=== PATIENT | female | born 1945 | race Caucasian/White ===

== ENCOUNTER 2019-09-04 16:10 | Inpatient (IN) ==
[2019-09-04 17:30] LABS: Basophils % 0.6 %; Eosinophils # 0.1 K/mcL (0.0-0.6); Eosinophils % 2.2 %; Hematocrit 26.5 % (35.3-44.9); Hemoglobin 8.8 g/dL (11.5-15.4); Immature Granulocytes % 0.4 % (0-4); Lymphocytes # 0.7 K/mcL (0.6-4.6); Lymphocytes % 13.2 %; Mean Corpuscular HGB Conc 33.2 g/dL (31.6-35.5); Mean Corpuscular Hemoglobin 30.6 pg (28.0-33.3); Mean Platelet Volume 9.5 fL (9.4-12.4); Monocytes # 0.6 K/mcL (0.0-1.3); Platelet Count 208 K/mcL (140-400); Red Blood Count 2.88 M/mcL (3.82-4.97); Red Cell Distribution Width 14.4 % (11.5-14.5); Segmented Neutrophils % 72.6 %; White Blood Count 5.5 K/mcL (4.3-11.1)
[2019-09-04] MEDS ORDERED: Mag Hydrox/Al Hydrox/Simeth 30 ML UDC PO PRN (17:44)
[2019-09-04 17:47] LABS: Albumin 3.1 g/dL (3.5-5.7); Albumin/Globulin Ratio 1.2 (1.1-2.2); Bilirubin,Total 0.4 mg/dL (0.3-1.0); Calcium 8.5 mg/dL (8.6-10.3); Globulin 2.6 g/dL (2.4-3.5); Magnesium 1.5 mg/dL (1.6-2.6); Potassium 3.4 mEq/L (3.5-5.1); Total Protein 5.7 g/dL (6.4-8.9)
[2019-09-04 18:03] LABS: Thyroid Stimulating Hormone 1.828 mcIU/mL (0.340-5.600)
[2019-09-04] MEDS: *HR* OxyCODONE Immed Rel 5 MG TABLET PO PRN ×2 (18:05→23:07)
[2019-09-04] MEDS: Magnesium Oxide 400 MG TABLET PO SCH (21:16)
[2019-09-05] MEDS: *HR* OxyCODONE Immed Rel 5 MG TABLET PO PRN ×4 (06:09→20:35)
[2019-09-05] MEDS ORDERED: Gabapentin 300 MG CAPSULE PO SCH (09:00)
[2019-09-05] MEDS: Cholecalciferol (D-3) 1,000 UNIT (25MCG) TABLET PO SCH (09:15)
[2019-09-05] MEDS: Magnesium Oxide 400 MG TABLET PO SCH ×2 (09:15→20:35)
[2019-09-05] MEDS: Multivit/Ca/Min/Fe/FA 1 TAB TABLET PO SCH (09:15)
[2019-09-05] MEDS: NIFEdipine XL (24 HR) 30 MG TAB.ER.24 PO SCH (13:07)
[2019-09-05] MEDS: Acetaminophen 325 MG TABLET PO PRN (13:07)
[2019-09-05] MEDS: Gabapentin 300 MG CAPSULE PO SCH (20:35)
[2019-09-05] MEDS: traZODone 50 MG TABLET PO PRN (20:35)
[2019-09-06] MEDS: *HR* Enoxaparin 40 MG/0.4 ML SYRINGE SQ SCH (05:39)
[2019-09-06] MEDS: Ondansetron ODT 4 MG TAB.RAPDIS SL PRN (05:39)
[2019-09-06] MEDS: *HR* OxyCODONE Immed Rel 5 MG TABLET PO PRN ×2 (05:39→11:19)
[2019-09-06] MEDS: NIFEdipine XL (24 HR) 30 MG TAB.ER.24 PO SCH (11:19)
[2019-09-06] MEDS: Multivit/Ca/Min/Fe/FA 1 TAB TABLET PO SCH (11:19)
[2019-09-06] MEDS: Cholecalciferol (D-3) 1,000 UNIT (25MCG) TABLET PO SCH (11:19)
[2019-09-06] MEDS: Magnesium Oxide 400 MG TABLET PO SCH ×2 (11:20→22:10)
[2019-09-06] MEDS: Gabapentin 300 MG CAPSULE PO SCH ×3 (11:21→22:10)
[2019-09-06] MEDS: Acetaminophen 325 MG TABLET PO PRN ×2 (15:01→22:11)
[2019-09-06] MEDS: traZODone 50 MG TABLET PO PRN (22:11)
[2019-09-07] MEDS: *HR* Enoxaparin 40 MG/0.4 ML SYRINGE SQ SCH (05:40)
[2019-09-07] MEDS: *HR* OxyCODONE Immed Rel 5 MG TABLET PO PRN ×4 (08:09→22:08)
[2019-09-07] MEDS: Cholecalciferol (D-3) 1,000 UNIT (25MCG) TABLET PO SCH (08:10)
[2019-09-07] MEDS: NIFEdipine XL (24 HR) 30 MG TAB.ER.24 PO SCH (08:10)
[2019-09-07] MEDS: Multivit/Ca/Min/Fe/FA 1 TAB TABLET PO SCH (08:10)
[2019-09-07] MEDS: Magnesium Oxide 400 MG TABLET PO SCH ×2 (08:10→20:20)
[2019-09-07] MEDS: Gabapentin 300 MG CAPSULE PO SCH ×3 (08:10→20:20)
[2019-09-07] MEDS: Acetaminophen 325 MG TABLET PO PRN (20:20)
[2019-09-07] MEDS: traZODone 50 MG TABLET PO PRN (20:20)
[2019-09-08] MEDS: *HR* OxyCODONE Immed Rel 5 MG TABLET PO PRN ×4 (04:39→19:45)
[2019-09-08 05:04] LABS: Hematocrit 27.4 % (35.3-44.9); Hemoglobin 8.6 g/dL (11.5-15.4); Mean Corpuscular HGB Conc 31.4 g/dL (31.6-35.5); Mean Corpuscular Hemoglobin 29.9 pg (28.0-33.3); Mean Corpuscular Volume 95.1 fL (83.0-100.0); Mean Platelet Volume 9.7 fL (9.4-12.4); Platelet Count 297 K/mcL (140-400); Red Blood Count 2.88 M/mcL (3.82-4.97); Red Cell Distribution Width 14.6 % (11.5-14.5); White Blood Count 6.9 K/mcL (4.3-11.1)
[2019-09-08 05:36] LABS: Calcium 8.5 mg/dL (8.6-10.3); Magnesium 2.1 mg/dL (1.6-2.6); Potassium 6.7 mEq/L (3.5-5.1)
[2019-09-08] MEDS: *HR* Enoxaparin 40 MG/0.4 ML SYRINGE SQ SCH (05:39)
[2019-09-08] MEDS ORDERED: Furosemide 40 MG/4 ML VIAL IVP ONE (06:52)
[2019-09-08] MEDS ORDERED: 0.9 % Sodium Chloride 500 ML IVC ONE (06:55)
[2019-09-08] MEDS: NIFEdipine XL (24 HR) 30 MG TAB.ER.24 PO SCH (08:26)
[2019-09-08] MEDS: Gabapentin 300 MG CAPSULE PO SCH ×3 (08:27→20:39)
[2019-09-08] MEDS: Cholecalciferol (D-3) 1,000 UNIT (25MCG) TABLET PO SCH (08:27)
[2019-09-08] MEDS: Magnesium Oxide 400 MG TABLET PO SCH ×2 (08:27→20:39)
[2019-09-08] MEDS: Multivit/Ca/Min/Fe/FA 1 TAB TABLET PO SCH (08:27)
[2019-09-08] MEDS: Acetaminophen 325 MG TABLET PO PRN ×3 (11:25→22:58)
[2019-09-08] MEDS: Ondansetron ODT 4 MG TAB.RAPDIS SL PRN (20:51)
[2019-09-08] MEDS: traZODone 50 MG TABLET PO PRN (20:51)
[2019-09-09] MEDS: *HR* OxyCODONE Immed Rel 5 MG TABLET PO PRN ×5 (03:33→21:58)
[2019-09-09] MEDS: *HR* Enoxaparin 40 MG/0.4 ML SYRINGE SQ SCH (06:32)
[2019-09-09] MEDS: Acetaminophen 325 MG TABLET PO PRN ×2 (06:33→11:42)
[2019-09-09 06:54] LABS: Retculocyte # 0.04 M/mcL (0.05-0.10); Reticulocyte % 1.8 % (1.6-2.8)
[2019-09-09] MEDS: Gabapentin 300 MG CAPSULE PO SCH ×3 (09:25→21:59)
[2019-09-09] MEDS: Multivit/Ca/Min/Fe/FA 1 TAB TABLET PO SCH (09:25)
[2019-09-09] MEDS: Magnesium Oxide 400 MG TABLET PO SCH ×2 (09:26→21:58)
[2019-09-09] MEDS: Cholecalciferol (D-3) 1,000 UNIT (25MCG) TABLET PO SCH (09:26)
[2019-09-09] MEDS: NIFEdipine XL (24 HR) 30 MG TAB.ER.24 PO SCH (09:26)
[2019-09-09 11:34] LABS: % Iron Saturation 13 % (15-50); Iron 23 mcg/dL (50-170); Transferrin 123 mg/dL (203-362)
[2019-09-09] MEDS: traZODone 50 MG TABLET PO PRN (21:58)
[2019-09-10] MEDS: *HR* OxyCODONE Immed Rel 5 MG TABLET PO PRN ×6 (02:05→23:14)
[2019-09-10] MEDS: *HR* Enoxaparin 40 MG/0.4 ML SYRINGE SQ SCH (06:04)
[2019-09-10 06:06] LABS: Hematocrit 24.1 % (35.3-44.9); Hemoglobin 7.6 g/dL (11.5-15.4); Mean Corpuscular HGB Conc 31.5 g/dL (31.6-35.5); Mean Corpuscular Hemoglobin 29.7 pg (28.0-33.3); Mean Corpuscular Volume 94.1 fL (83.0-100.0); Mean Platelet Volume 9.5 fL (9.4-12.4); Platelet Count 292 K/mcL (140-400); Red Blood Count 2.56 M/mcL (3.82-4.97); Red Cell Distribution Width 14.3 % (11.5-14.5); White Blood Count 6.1 K/mcL (4.3-11.1)
[2019-09-10 06:27] LABS: Calcium 8.1 mg/dL (8.6-10.3); Potassium 5.4 mEq/L (3.5-5.1)
[2019-09-10] MEDS: Gabapentin 300 MG CAPSULE PO SCH ×3 (08:05→20:05)
[2019-09-10] MEDS: Cholecalciferol (D-3) 1,000 UNIT (25MCG) TABLET PO SCH (08:05)
[2019-09-10] MEDS: NIFEdipine XL (24 HR) 30 MG TAB.ER.24 PO SCH (08:05)
[2019-09-10] MEDS: Multivit/Ca/Min/Fe/FA 1 TAB TABLET PO SCH (08:05)
[2019-09-10] MEDS: Magnesium Oxide 400 MG TABLET PO SCH ×2 (08:05→20:04)
[2019-09-10] MEDS: Acetaminophen 325 MG TABLET PO PRN (09:40)
[2019-09-10] MEDS: traZODone 50 MG TABLET PO PRN (20:05)
[2019-09-10] MEDS: Iron Sucrose Complex 200 MG in 0.9 % Sodium Chloride 100 ML IVPB SCH (20:45)
[2019-09-11] MEDS: *HR* Enoxaparin 40 MG/0.4 ML SYRINGE SQ SCH (05:02)
[2019-09-11] MEDS: *HR* OxyCODONE Immed Rel 5 MG TABLET PO PRN ×4 (05:03→18:27)
[2019-09-11 06:26] LABS: Calcium 8.2 mg/dL (8.6-10.3); Potassium 5.1 mEq/L (3.5-5.1)
[2019-09-11] MEDS: Multivit/Ca/Min/Fe/FA 1 TAB TABLET PO SCH (07:50)
[2019-09-11] MEDS: Acetaminophen 325 MG TABLET PO PRN ×2 (07:50→20:54)
[2019-09-11] MEDS: Magnesium Oxide 400 MG TABLET PO SCH ×2 (07:51→20:53)
[2019-09-11] MEDS: NIFEdipine XL (24 HR) 30 MG TAB.ER.24 PO SCH (07:51)
[2019-09-11] MEDS: Cholecalciferol (D-3) 1,000 UNIT (25MCG) TABLET PO SCH (07:51)
[2019-09-11] MEDS: Gabapentin 300 MG CAPSULE PO SCH ×3 (07:51→20:54)
[2019-09-11 14:45] LABS: Albumin 2.9 g/dL (3.5-5.7); Albumin/Globulin Ratio 1.3 (1.1-2.2); Bilirubin,Total 0.3 mg/dL (0.3-1.0); Globulin 2.3 g/dL (2.4-3.5); Total Protein 5.2 g/dL (6.4-8.9)
[2019-09-11] MEDS: Iron Sucrose Complex 200 MG in 0.9 % Sodium Chloride 100 ML IVPB SCH (20:49)
[2019-09-11] MEDS: traZODone 50 MG TABLET PO PRN (20:54)
[2019-09-12] MEDS: *HR* OxyCODONE Immed Rel 5 MG TABLET PO PRN ×5 (00:06→21:22)
[2019-09-12] MEDS: *HR* Enoxaparin 30 MG/0.3 ML SYRINGE SQ SCH (05:27)
[2019-09-12 06:45] LABS: Calcium 8.7 mg/dL (8.6-10.3)
[2019-09-12] MEDS: Ondansetron ODT 4 MG TAB.RAPDIS SL PRN (08:29)
[2019-09-12 08:54] LABS: Basophils # 0.1 K/mcL (0.0-0.2); Basophils % 0.6 %; Eosinophils # 0.3 K/mcL (0.0-0.6); Hematocrit 26.3 % (35.3-44.9); Hemoglobin 8.1 g/dL (11.5-15.4); Immature Granulocytes % 0.3 % (0-4); Lymphocytes # 1.5 K/mcL (0.6-4.6); Lymphocytes % 17.5 %; Mean Corpuscular HGB Conc 30.8 g/dL (31.6-35.5); Mean Corpuscular Hemoglobin 29.5 pg (28.0-33.3); Mean Corpuscular Volume 95.6 fL (83.0-100.0); Mean Platelet Volume 9.6 fL (9.4-12.4); Monocytes # 0.5 K/mcL (0.0-1.3); Monocytes % 5.3 %; Neutrophils # 6.5 K/mcL (1.6-8.9); Platelet Count 325 K/mcL (140-400); Red Blood Count 2.75 M/mcL (3.82-4.97); Red Cell Distribution Width 14.6 % (11.5-14.5); Segmented Neutrophils % 73.3 %; White Blood Count 8.8 K/mcL (4.3-11.1)
[2019-09-12] MEDS: Magnesium Oxide 400 MG TABLET PO SCH ×2 (09:15→21:23)
[2019-09-12] MEDS: Gabapentin 300 MG CAPSULE PO SCH ×3 (09:15→21:23)
[2019-09-12] MEDS: Acetaminophen 325 MG TABLET PO PRN ×2 (09:15→18:36)
[2019-09-12] MEDS: NIFEdipine XL (24 HR) 30 MG TAB.ER.24 PO SCH (09:15)
[2019-09-12] MEDS: Multivit/Ca/Min/Fe/FA 1 TAB TABLET PO SCH (09:15)
[2019-09-12] MEDS: Cholecalciferol (D-3) 1,000 UNIT (25MCG) TABLET PO SCH (09:16)
[2019-09-12] MEDS: traZODone 50 MG TABLET PO PRN (21:26)
[2019-09-13] MEDS: *HR* OxyCODONE Immed Rel 5 MG TABLET PO PRN ×4 (01:30→15:08)
[2019-09-13] MEDS: *HR* Enoxaparin 30 MG/0.3 ML SYRINGE SQ SCH (05:13)
[2019-09-13 07:02] VITALS: BP 153/64
[2019-09-13] MEDS: Cholecalciferol (D-3) 1,000 UNIT (25MCG) TABLET PO SCH (08:57)
[2019-09-13] MEDS: Magnesium Oxide 400 MG TABLET PO SCH (08:57)
[2019-09-13] MEDS: Multivit/Ca/Min/Fe/FA 1 TAB TABLET PO SCH (08:57)
[2019-09-13] MEDS: Gabapentin 300 MG CAPSULE PO SCH ×2 (08:57→15:08)
[2019-09-13] MEDS: NIFEdipine XL (24 HR) 30 MG TAB.ER.24 PO SCH (08:57)
[2019-09-13] MEDS: Acetaminophen 325 MG TABLET PO PRN (12:24)
[2019-09-13] MEDS ORDERED: Enoxaparin Weight Dosing SQ SCH ×2 (14:00→21:00)
== END 2019-09-13 15:22 | disposition home or self-care (01) | DRG 561 ==
LOC: INPGRE 16:21

== ENCOUNTER 2020-12-02 16:25 | Inpatient (IN) ==
[2020-12-02] MEDS ORDERED: Aspirin 81 MG TAB.CHEW PO ONE (16:47)
[2020-12-02 17:18] LABS: Basophils # 0.1 K/mcL (0.0-0.2); Basophils % 1.1 %; Eosinophils # 0.4 K/mcL (0.0-0.6); Eosinophils % 6.3 %; Hematocrit 27.8 % (35.3-44.9); Immature Granulocytes % 0.2 % (0-4); Lymphocytes # 1.2 K/mcL (0.6-4.6); Lymphocytes % 22.3 %; Mean Corpuscular HGB Conc 32.4 g/dL (31.6-35.5); Mean Corpuscular Hemoglobin 32.1 pg (28.0-33.3); Mean Corpuscular Volume 99.3 fL (83.0-100.0); Monocytes # 0.4 K/mcL (0.0-1.3); Monocytes % 7.7 %; Neutrophils # 3.5 K/mcL (1.6-8.9); Platelet Count 136 K/mcL (140-400); Red Cell Distribution Width 16.4 % (11.5-14.5); Segmented Neutrophils % 62.4 %; White Blood Count 5.6 K/mcL (4.3-11.1)
[2020-12-02 17:31] LABS: Activated Partial Thrombo Time 40.3 Seconds (26.0-36.0)
[2020-12-02 17:39] LABS: BUN/Creatinine Ratio 19 (6-26); Blood Urea Nitrogen 57 mg/dL (8-23); Carbon Dioxide 32 mEq/L (23-29); Chloride 100 mEq/L (98-107); Glucose 123 mg/dL (70-105); Osmolality,Calculated 303 (280-300); Sodium 138 mEq/L (136-145); eGFR For African Americans 18 (> 60); eGFR For Non-African Americans 15 (> 60)
[2020-12-02 17:40] LABS: Troponin I < 0.03 ng/mL (< 0.04)
[2020-12-02] MEDS ORDERED: 0.9 % Sodium Chloride 500 ML IVC ONE (17:51)
[2020-12-02] MEDS ORDERED: Furosemide 40 MG/4 ML VIAL IVP ONE (17:51)
[2020-12-02] MEDS ORDERED: Calcium Gluconate 1gm/50mL 1 GM/50 ML BAG IVPB ONE (17:53)
[2020-12-02] MEDS ORDERED: Albuterol Neb 7.5 MG, Sodium Chloride for inhalation 12 ML IH ONE (17:54)
[2020-12-02] MEDS ORDERED: *HR* Dextrose 50 % in Water (Syg) 50 ML SYRINGE IVP ONE (18:30)
[2020-12-02] MEDS ORDERED: Insulin Human Regular 10 UNIT in 0.9 % Sodium Chloride 10 ML IV ONE (18:34)
[2020-12-02] MEDS ORDERED: Acetaminophen 325 MG TABLET PO PRN (18:52)
[2020-12-02] MEDS ORDERED: *HR* HYDROcodone/Acet 5/325 mg TABLET PO PRN (18:52)
[2020-12-02] MEDS ORDERED: Naloxone 0.4 MG/ML INJ IVP PRN (18:52)
[2020-12-02] MEDS: 0.9 % Sodium Chloride 1,000 ML IVC SCH (19:53)
[2020-12-02] MEDS: Gabapentin 300 MG CAPSULE PO SCH (19:54)
[2020-12-02 22:36] LABS: Calcium 8.6 mg/dL (8.6-10.3); Magnesium 4.1 mg/dL (1.6-2.6); Potassium 4.1 mEq/L (3.5-5.1)
[2020-12-03] MEDS: 0.9 % Sodium Chloride 1,000 ML IVC SCH ×2 (05:55→16:08)
[2020-12-03] MEDS: *HR* Heparin 5,000 UNIT/ML VIAL SQ SCH ×2 (05:56→16:09)
[2020-12-03 06:50] LABS: Hematocrit 24.1 % (35.3-44.9); Hemoglobin 7.6 g/dL (11.5-15.4); Mean Corpuscular HGB Conc 31.5 g/dL (31.6-35.5); Mean Corpuscular Hemoglobin 31.9 pg (28.0-33.3); Mean Corpuscular Volume 101.3 fL (83.0-100.0); Mean Platelet Volume 9.4 fL (9.4-12.4); Platelet Count 112 K/mcL (140-400); Red Blood Count 2.38 M/mcL (3.82-4.97); Red Cell Distribution Width 16.8 % (11.5-14.5); White Blood Count 5.4 K/mcL (4.3-11.1)
[2020-12-03 07:44] LABS: Calcium 8.4 mg/dL (8.6-10.3); Potassium 5.6 mEq/L (3.5-5.1)
[2020-12-03] MEDS ORDERED: Patient Taking Own Medication 1 EACH PO SCH ×2 (09:00)
[2020-12-03] MEDS: Aspirin 81 MG TAB.CHEW PO SCH (09:45)
[2020-12-03] MEDS: calcitrioL 0.25 MCG CAPSULE PO SCH (09:45)
[2020-12-03] MEDS: Isosorbide MONOnitrate (24 HR) 30 MG TAB.ER.24H PO SCH (09:45)
[2020-12-03] MEDS: Metoprolol XL (24 HR) Succ 25 MG TAB.ER.24H PO SCH (09:46)
[2020-12-03] MEDS: NIFEdipine XL (24 HR) 30 MG TAB.ER.24 PO SCH (09:46)
[2020-12-03] MEDS: Gabapentin 300 MG CAPSULE PO SCH ×3 (09:46→21:26)
[2020-12-03] MEDS: Furosemide 40 MG/4 ML VIAL IVP SCH (16:24)
[2020-12-03] MEDS: SODIUM ZIRCONIUM CYCLOSILICATE 5 GM POWD.PACK PO SCH (17:17)
[2020-12-04] MEDS: 0.9 % Sodium Chloride 1,000 ML IVC SCH ×3 (02:17→23:10)
[2020-12-04] MEDS: *HR* Heparin 5,000 UNIT/ML VIAL SQ SCH ×2 (05:06→16:54)
[2020-12-04 06:03] LABS: Hematocrit 23.1 % (35.3-44.9); Hemoglobin 7.4 g/dL (11.5-15.4); Mean Platelet Volume 9.2 fL (9.4-12.4); Platelet Count 109 K/mcL (140-400); Red Blood Count 2.31 M/mcL (3.82-4.97); Red Cell Distribution Width 16.3 % (11.5-14.5); White Blood Count 4.7 K/mcL (4.3-11.1)
[2020-12-04 06:20] LABS: Calcium 7.8 mg/dL (8.6-10.3); Magnesium 3.8 mg/dL (1.6-2.6); Potassium 4.3 mEq/L (3.5-5.1)
[2020-12-04] MEDS: Magnesium Oxide 400 MG TABLET PO SCH (08:41)
[2020-12-04] MEDS: Metoprolol XL (24 HR) Succ 25 MG TAB.ER.24H PO SCH (09:26)
[2020-12-04] MEDS: Gabapentin 300 MG CAPSULE PO SCH ×3 (09:26→22:18)
[2020-12-04] MEDS: calcitrioL 0.25 MCG CAPSULE PO SCH (09:26)
[2020-12-04] MEDS: Isosorbide MONOnitrate (24 HR) 30 MG TAB.ER.24H PO SCH (09:26)
[2020-12-04] MEDS: Aspirin 81 MG TAB.CHEW PO SCH (09:26)
[2020-12-04] MEDS: NIFEdipine XL (24 HR) 30 MG TAB.ER.24 PO SCH (09:26)
[2020-12-04] MEDS: Furosemide 40 MG/4 ML VIAL IVP SCH ×3 (09:30→22:12)
[2020-12-04] MEDS: SODIUM ZIRCONIUM CYCLOSILICATE 5 GM POWD.PACK PO SCH ×2 (09:30→12:10)
[2020-12-04] MEDS: FLAXSEED OIL 1000 MG PO SCH (11:32)
[2020-12-04] MEDS: BIOTIN 10000 MCG PO SCH (11:32)
[2020-12-04] MEDS: Ondansetron 4 MG/2 ML VIAL IVP PRN (22:07)
[2020-12-05 05:16] LABS: Hemoglobin 7.2 g/dL (11.5-15.4); Mean Corpuscular HGB Conc 32.7 g/dL (31.6-35.5); Mean Corpuscular Hemoglobin 32.3 pg (28.0-33.3); Mean Corpuscular Volume 98.7 fL (83.0-100.0); Mean Platelet Volume 9.5 fL (9.4-12.4); Platelet Count 117 K/mcL (140-400); Red Blood Count 2.23 M/mcL (3.82-4.97); White Blood Count 4.3 K/mcL (4.3-11.1)
[2020-12-05 05:31] LABS: Calcium 7.9 mg/dL (8.6-10.3); Potassium 3.7 mEq/L (3.5-5.1)
[2020-12-05] MEDS: *HR* Heparin 5,000 UNIT/ML VIAL SQ SCH ×2 (06:23→17:23)
[2020-12-05] MEDS ORDERED: SODIUM ZIRCONIUM CYCLOSILICATE 5 GM POWD.PACK PO SCH (09:00)
[2020-12-05] MEDS: calcitrioL 0.25 MCG CAPSULE PO SCH (09:29)
[2020-12-05] MEDS: Aspirin 81 MG TAB.CHEW PO SCH (09:29)
[2020-12-05] MEDS: Isosorbide MONOnitrate (24 HR) 30 MG TAB.ER.24H PO SCH (09:29)
[2020-12-05] MEDS: NIFEdipine XL (24 HR) 30 MG TAB.ER.24 PO SCH (09:29)
[2020-12-05] MEDS: Gabapentin 300 MG CAPSULE PO SCH ×3 (09:29→20:37)
[2020-12-05] MEDS: Metoprolol XL (24 HR) Succ 25 MG TAB.ER.24H PO SCH (09:29)
[2020-12-05] MEDS: 0.9 % Sodium Chloride 1,000 ML IVC SCH (09:30)
[2020-12-05] MEDS: Furosemide 40 MG/4 ML VIAL IVP SCH ×2 (09:30→20:38)
[2020-12-05] MEDS: BIOTIN 10000 MCG PO SCH (09:31)
[2020-12-05] MEDS: SODIUM ZIRCONIUM CYCLOSILICATE 5 GM POWD.PACK PO SCH (09:31)
[2020-12-05] MEDS: FLAXSEED OIL 1000 MG PO SCH (09:31)
[2020-12-05] MEDS: Magnesium Oxide 400 MG TABLET PO SCH (09:33)
[2020-12-05] MEDS ORDERED: 0.9 % Sodium Chloride 250 ML ONE (22:12)
[2020-12-06] MEDS: *HR* Heparin 5,000 UNIT/ML VIAL SQ SCH (05:12)
[2020-12-06] MEDS: Ondansetron 4 MG/2 ML VIAL IVP PRN (06:39)
[2020-12-06 07:33] VITALS: BP 170/85
[2020-12-06] MEDS: NIFEdipine XL (24 HR) 30 MG TAB.ER.24 PO SCH (09:16)
[2020-12-06] MEDS: Aspirin 81 MG TAB.CHEW PO SCH (09:16)
[2020-12-06] MEDS: Isosorbide MONOnitrate (24 HR) 30 MG TAB.ER.24H PO SCH (09:16)
[2020-12-06] MEDS: Metoprolol XL (24 HR) Succ 25 MG TAB.ER.24H PO SCH (09:16)
[2020-12-06] MEDS: Gabapentin 300 MG CAPSULE PO SCH (09:16)
[2020-12-06] MEDS: calcitrioL 0.25 MCG CAPSULE PO SCH (09:18)
[2020-12-06] MEDS: FLAXSEED OIL 1000 MG PO SCH (09:23)
[2020-12-06] MEDS: BIOTIN 10000 MCG PO SCH (09:23)
== END 2020-12-06 09:47 | disposition home or self-care (01) | DRG 641 ==
LOC: INPGRE 16:25 → EMEROOGRE 16:25 → INPGRE 19:32
PROVIDERS: ADMIT Family Medicine; ATTEND Family Medicine